=== PATIENT | female | born 1930 ===

== ENCOUNTER 2017-11-07 12:25 | Emergency (ER) | payer OTHER ==
[~2017-11-07] VITALS: Ht 152.4 cm; Wt 47.6 kg
[2017-11-07] MEDS ORDERED: NAMENDA10 MG PO (12:51)
[2017-11-07] MEDS ORDERED: ZOCOR20 MG PO (12:51)
[2017-11-07] MEDS ORDERED: ALTACE10 MG PO (12:52)
[2017-11-07] MEDS ORDERED: VIT B 12 (12:52)
[2017-11-07] MEDS ORDERED: EXELON1 EAC1 (12:52)
[2017-11-07] MEDS ORDERED: GLUCOSAMINE1000 MG PO (12:53)
[2017-11-07] MEDS ORDERED: SEROQUEL25 MG PO (12:53)
[2017-11-07] MEDS ORDERED: LEVAQUIN500 MG PO (15:55)
== END 2017-11-07 16:20 | disposition home or self-care (01) ==
LOC: ER 12:25
DX: S01.02XA Laceration with foreign body of scalp, initial encounter (principal); S40.011A Contusion of right shoulder, initial encounter; W45.8XXA Other foreign body or object entering through skin, initial encounter; Y93.01 Activity, walking, marching and hiking; Y92.198 Other place in other specified residential institution as the place of occurrence of the external cause; Y99.8 Other external cause status